=== PATIENT | female | born 1980 | race Asian ===

== ENCOUNTER 2018-05-09 13:56 | Emergency (ER) | payer SELFPAY ==
[~2018-05-09] VITALS: Ht 170.2 cm; Wt 82.0 kg
[2018-05-09] MEDS ORDERED: ASPIRIN 81 MG TABLET CHEW ONE (14:17)
[2018-05-09 14:28] LABS: BASOPHILS # (AUTO) 0.05 x10^3/uL (0-0.1); BASOPHILS % (AUTO) 1 % (0-1); EOSINOPHILS # (AUTO) 0.06 x10^3/uL (0-0.4); EOSINOPHILS % (AUTO) 1 % (1-7); LYMPHOCYTES # (AUTO) 2.49 x10^3/uL (1-3.4); LYMPHOCYTES % (AUTO) 24 % (22-44); MD NO; MEAN CORPUSCULAR HEMOGLOBIN 28.6 pg (27.0-34.8); MEAN CORPUSCULAR HGB CONC 33.7 g/dL (32.4-35.8); MEAN CORPUSCULAR VOLUME 84.7 fL (80-100); MEAN PLATELET VOLUME 7.5 fL (7.4-10.4); MONOCYTES # (AUTO) 0.45 x10^3/uL (0.2-0.8); MONOCYTES % (AUTO) 4 % (2-9); NEUTROPHILS # (AUTO) 7.33 x10^3/uL (1.8-6.8); NEUTROPHILS % (AUTO) 71 % (42-75); PLATELET COUNT 410 x10^3/uL (130-400); RED BLOOD COUNT 5.88 x10^6/uL (3.82-5.3); RED CELL DISTRIBUTION WIDTH 14.2 % (9.6-15.2)
--- NOTE | 2018-05-09 14:28 | NUR ---
PT PRESENTED TO ED D/T ANXIETY. PER REPORT PT QUIT STRESSFUL JOB 2 WEEKS AGO AND HAS BEEN UNEMPLOYED SINCE THEN. PT STATES UNABLE TO SLEEP AND IS NERVOUS WHEN LEAVING THE HOUSE. PT DENIES SI. HYPERTENSION NOTED, 193/134. PA AT BEDSIDE EVALUATING PT AND AWARE OF HYPERTENSION.
[2018-05-09] MEDS ORDERED: SODIUM CHLORIDE FLUSH 10ML SYR IVF ONE (14:30)
[2018-05-09] MEDS ORDERED: ASPIRIN 81 MG TABLET CHEW PO ONE (14:30)
[2018-05-09 14:40] LABS: ALBUMIN 3.7 g/dL (3.4-5.0); ANION GAP 8 mmol/L (5-15); CALCIUM 9.3 mg/dL (8.5-10.1); CHLORIDE 107 mmol/L (98-107); CREATININE 0.86 mg/dL (0.55-1.02)
[2018-05-09] MEDS ORDERED: LORazepam 1MG TABLET ONE (14:40)
--- NOTE | 2018-05-09 14:43 | NUR ---
PT MEDICATED PER EMAR. WARM BLANKET WAS PROVIDED.
[2018-05-09 14:44] LABS: TROPONIN I < 0.015 ng/mL (0.000-0.045)
[2018-05-09] MEDS ORDERED: LISI-167 PO (14:56)
[2018-05-09] MEDS ORDERED: METF500T17 PO (14:56)
[2018-05-09] MEDS ORDERED: LORazepam 1MG TABLET PO ONE (15:00)
--- NOTE | 2018-05-09 15:27 | NUR ---
ERMD AT BEDSIDE EVALUATING PT.
--- NOTE | 2018-05-09 16:12 | NUR ---
PT RESTING COMFORTABLY ON GURNEY. STATES ATIVAN HELPED HER "NERVES". FAMILY AT BEDSIDE. HYPERTENSION STILL NOTED. ERMD AWARE.
[2018-05-09 16:41] VITALS: BP 167/112
== END 2018-05-09 17:10 | disposition home or self-care (01) ==
LOC: ED 16:50
DX: F41.1 Generalized anxiety disorder (principal); I10 Essential (primary) hypertension; E11.9 Type 2 diabetes mellitus without complications
CPT/HCPCS: 36415; 71046; 80048; 82040; 83880; 84443; 84484; 85025; 93005; 99284

== ENCOUNTER 2018-05-10 21:17 | Emergency (ER) | payer OTHER ==
[~2018-05-10] VITALS: Ht 170.2 cm; Wt 82.8 kg
[~2018-05-10 21:17] MED LIST: LISI-167 PO; METF500T17 PO
--- NOTE | 2018-05-10 21:42 | NUR ---
PT CALLED TO ROOM FROM LOBBY
--- NOTE | 2018-05-10 22:00 | NUR ---
185/120 (?) DESPITE BP MEDS, SEEN YESTERDAY FOR SAME, DENIES OTHER SYMPTOMS. PT B/P CURRENTLY 190S SYSTOLIC, DENIES HEADACHE OR VISUAL CHANGES, MD AT BEDSIDE, CALL LIGHT IN REACH
[2018-05-10] MEDS ORDERED: LORazepam 1MG TABLET PO ONE (22:30)
[2018-05-10] MEDS ORDERED: NITROGLYCERIN OINT 2%, 1GM TP ONE ×2 (22:30→22:32)
[2018-05-10] MEDS ORDERED: LORazepam 1MG TABLET ONE (22:33)
--- NOTE | 2018-05-10 22:35 | NUR ---
PT MEDICATED PER eMAR, STATES FEELING ANXIOUS, MEDICATED FOR SAME
--- NOTE | 2018-05-10 23:17 | NUR ---
PT STATES STARTING TO FEEL MEDICATION, BP STILL ELEVATED, CALL LIGHT IN REACH
[2018-05-10] MEDS ORDERED: AMLODIPINE 5 MG TABLET ONE (23:55)
[2018-05-11] MEDS ORDERED: AMLODIPINE 5 MG TABLET PO ONE
--- NOTE | 2018-05-11 00:01 | NUR ---
PT MEDICATED PER eMAR, NO DISTRESS NOTED, B/P STILL ELEVATED
[2018-05-11 00:46] VITALS: BP 160/100
== END 2018-05-11 00:48 | disposition home or self-care (01) ==
LOC: ED 22:29
DX: I10 Essential (primary) hypertension (principal); F41.1 Generalized anxiety disorder
CPT/HCPCS: 99284

== ENCOUNTER 2020-01-21 20:45 | Emergency (ER) | payer OTHER ==
[~2020-01-21] VITALS: Ht 167.6 cm; Wt 86.0 kg
--- NOTE | 2020-01-21 23:42 | NUR ---
PT AMBULATES FROM LOBBY TO ROOM WITH STEADY GAIT. PT CHANGED INTO GOWN AND IN GURNEY. PT ATTACHED TO VS AND CARDIAC MONITORS. VSS AT THIS TIME. PT EDUCATED ON ER PROCESS AND POC AND VERBALIZES UNDERSTANDING. CALL LIGHT IS WITHIN REACH. AWAITING ERP AT THIS TIME.
[2020-01-22] MEDS ORDERED: METOPROLOL TARTRATE 50 MG TAB ONE (00:16)
--- NOTE | 2020-01-22 00:21 | NUR ---
PT REFUSED CT.
[2020-01-22 00:36] VITALS: BP 172/112
--- NOTE | 2020-01-22 00:36 | NUR ---
PHARMACY SHEET SENT TO PHARMACY FOR TOPROL XL AT THIS TIME. PT MEDICATED PER MAR WITH PO CLONIDINE.
--- NOTE | 2020-01-22 01:39 | NUR ---
PT D/C WITH D/C SUMMARY AND SCRIPTS. ALL QUESTIONS ANSWERED. CONTROLLED SUBSTANCE SHEET SIGNED AND PLACED WITH PT CHART. PT AMBULATES TO REGISTRATION DESK WITH STEADY GAIT FOR D/C HOME WITH SPOUSE. PT AND FAMILY DENY ANY OTHER NEEDS PERTAINING TO THIS VISIT.
[2020-01-22] MEDS ORDERED: METOPROLOL SUCCINATE 50 MG TAB.ER.24H PO ONE (06:00)
== END 2020-01-22 01:52 | disposition home or self-care (01) ==
LOC: ED 23:34
DX: F41.1 Generalized anxiety disorder (principal); I10 Essential (primary) hypertension; R00.0 Tachycardia, unspecified; E11.9 Type 2 diabetes mellitus without complications
CPT/HCPCS: 93005; 99283